=== PATIENT | male | born 2005 | race Caucasian/White ===

== ENCOUNTER 2024-03-03 15:14 | Outpatient (CLI) | payer OTHER ==
--- NOTE | 2024-03-07 11:32 | XRAY Report ---
PROCEDURE: Cervical Spine 2-3V INDICATIONS: STRAIN OF MUSCLE, FASCIA AND TENDON AT NECK LEVEL TECHNIQUE: 3 view(s) of the cervical spine were acquired. COMPARISON: None. FINDINGS: Bones: Straightening of C-spine is noted. No fractures or dislocations to the T7 level. The lateral masses of C1 appear intact on the odontoid view. No suspicious bony lesions. Soft tissues: No prevertebral soft tissue swelling. IMPRESSION: Straightening of the C-spine may be positional or may be related to muscular spasm. No displaced fracture or traumatic subluxation. Reviewed by: Tyson Mckay MD on 03/07/2024 11:30 AM PDT Approved by: Tyson Mckay MD on 03/07/2024 11:30 AM PDT Station ID: [id number]
== END 2024-03-03 23:59 | disposition home or self-care (01) ==
LOC: DI.N 15:14
PROVIDERS: ATTEND Physician Assistant Medical
DX: S16.1XXA Strain of muscle, fascia and tendon at neck level, initial encounter (principal)